=== PATIENT | male | born 1960 | race Caucasian/White ===

== ENCOUNTER → 2017-04-06 | Outpatient (CLI) | payer OTHER, SELFPAY ==
[~2017-04-06] MED LIST: CHROMIUM PICO PO; CLONAZEPAM 1 MG1 M1 PO; CLONAZEPAM PO; FLAX SEED OIL1000 MG PO; FLOMAX0.4 MG PO; GLUCOPHAGE500 MG PO; GLUCOTROL5 MG PO; IBUPROFEN 800800 M1 PO; KELP1 EACH PO; KELP150 MC1 PO; KLONOPIN0.5 MG PO; MECLIZINE HCL25 M1 PO; METAMUCIL283 GM PO; METFORMIN HCL500 MG PO; MIRALAX17 GM PO; MIRALAX255 GM PO; MULTIVITAMINS PO; OMEPRAZOLE40 MG PO; PAXIL10 MG PO; PERCOCET PO; REQUIP 0.25 M0.25 MG PO; SENNA-S TABLET1 EACH; TRAMADOL 50 MG50 MG PO; TYLENOL325 MG PO; VICODIN 5-5001 EACH; VITAMIN B-12250 MCG PO; VITAMIN B-6200 M1 PO; VITAMIN D 5050000 I1 PO; VITAMIN D PO; VITAMIN D1000 UNI1 PO
== END ==
LOC: M.ULTRA 13:00
DX: M54.16 Radiculopathy, lumbar region (principal); M51.26 Other intervertebral disc displacement, lumbar region; I73.9 Peripheral vascular disease, unspecified; E11.42 Type 2 diabetes mellitus with diabetic polyneuropathy; I10 Essential (primary) hypertension; G62.9 Polyneuropathy, unspecified; M17.0 Bilateral primary osteoarthritis of knee; M54.41 Lumbago with sciatica, right side

== ENCOUNTER 2017-04-30 12:05 | Inpatient (IN) | payer OTHER ==
[~2017-04-30] VITALS: Ht 177.8 cm; Wt 102.1 kg
[~2017-04-30 12:05] MED LIST changes: -FLOMAX0.4 MG PO; -METFORMIN HCL500 MG PO; -REQUIP 0.25 M0.25 MG PO
[2017-04-30 12:09] VITALS: BP 148/86
[2017-04-30 12:25] LABS: ABSOLUTE EOSINOPHILS 0.1 thou/uL (0.0-0.7); ABSOLUTE LYMPHOCYTES 0.8 thou/uL (0.8-5.3); ABSOLUTE MONOCYTES 0.5 thou/uL (0.0-1.2); ABSOLUTE NEUTROPHILS 5.4 thou/uL (1.6-8.1); BASOPHILS 0.4 %; EOSINOPHILS 0.9 %; HEMATOCRIT 44.1 % (42.0-52.0); HEMOGLOBIN 15.3 gm/dL (14.0-18.0); LYMPHOCYTES 12.2 %; MCH 33.6 pg (26.0-34.0); MCHC 34.8 g/dL (28.0-37.0); MCV 96.7 fL (80.0-100.0); MONOCYTES 7.4 %; MPV 9.6 fl. (7.2-11.1); NUCLEATED RBCS 0 /100WBC; PLATELET COUNT* 169 thou/uL (150-400); POLYS 79.1 %; RBC 4.56 mil/uL (4.50-6.00); RDW-CV 13.4 % (10.5-14.5); WBC 6.8 thou/uL (4.0-11.0)
[2017-04-30 12:35] LABS: ANION GAP 13 mmol/L (7-16); BUN 14 mg/dL (7-18); CHLORIDE 97 mmol/L (98-107); CO2 24 mmol/L (21-32); CREATININE 1.4 mg/dL (0.6-1.3); GLUCOSE 466 mg/dL (70-99); SODIUM 134 mmol/L (136-145)
[2017-04-30 12:42] LABS: ALBUMIN 3.5 g/dL (3.4-5.0); ALKALINE PHOSPHATASE 68 U/L (46-116); LIPASE 321 U/L (73-393); MAGNESIUM 1.6 mg/dL (1.8-2.4); SGOT 51 U/L (15-37); SGPT 72 U/L (30-65); TOTAL BILIRUBIN 0.6 mg/dL (<0.1-1.0); TOTAL PROTEIN 7.4 g/dL (6.4-8.2); TROPONIN-I LEVEL <0.06 ng/mL (<0.06)
[2017-04-30 13:52] VITALS: BP 120/80
[2017-04-30 14:00] VITALS: BP 153/82; BP 153/83
--- NOTE | 2017-04-30 15:21 | EKG ---
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 : 1960 Requested By: Charlie Gan Order Number: [id number] MD: Kris Miller Measurements Intervals [place] Rate: 107 P: 33 [place]: 144 QRS: -33 QRSD: 86 T: 30 QT: 325 QTc: 434 Interpretive Statements Sinus tachycardia Ventricular premature complex Probable left atrial enlargement Left axis deviation Compared to ECG 06/30/2013 13:42:03 Ventricular premature complex(es) now present Sinus rhythm no longer present Electronically Signed On 04-30-2017 15:21:03 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
[2017-04-30 15:39] VITALS: BP 123/68
--- NOTE | 2017-04-30 16:00 | NUR ---
VSS, ASSUMED CARE OF PT FROM ER, ASSESSMENT PERFORMED AND CHARTED, PT IS A&O4 AND ON RA AND TRACING SR ON THE MONITOR, ON RA AND STATES PAIN IN LEFT CHEST BREST. PT IS UP AD COURT AND LUNGS ARE CLEAR, SKIN INTACT, WILL FOLLOW WITH PLAN OF CARE,
[2017-04-30 20:00] VITALS: BP 112/74
[2017-05-01] VITALS: BP 132/80
[2017-05-01 04:00] VITALS: BP 148/88
--- NOTE | 2017-05-01 06:08 | NUR ---
ASSUMED PATIENT CARE AT 1900. BEDSIDE REPORT GIVEN. DENIES CHEST PAIN OR SOA. EDUCATION PROVIDED ON DM AND FOOTCARE WELL DIET. VERBALIZES HIS INSEPCTS FEET FOR HIM AND THAT HE WILL FOLLOW UP WITH RD POST DC. PATIENT BG ELEVATED. HIMS DOC PAGED FOR ORDERS FOR BG CONTROL. HOURLY ROUNDING IN PLACE. WILL CONTINUE TO MONITOR.
[2017-05-01 08:00] VITALS: BP 146/89
[2017-05-01 08:17] LABS: HEMATOCRIT 42.7 % (42.0-52.0); MCH 33.3 pg (26.0-34.0); MCHC 35.1 g/dL (28.0-37.0); MCV 94.8 fL (80.0-100.0); MPV 9.5 fl. (7.2-11.1); RBC 4.5 mil/uL (4.50-6.00); RDW-CV 13.1 % (10.5-14.5); WBC 6.1 thou/uL (4.0-11.0)
[2017-05-01 08:35] LABS: ANION GAP 8 mmol/L (7-16); BUN 13 mg/dL (7-18); CHLORIDE 103 mmol/L (98-107); CO2 29 mmol/L (21-32); CREATININE 0.9 mg/dL (0.6-1.3); GLUCOSE 185 mg/dL (70-99); MAGNESIUM 1.6 mg/dL (1.8-2.4); POTASSIUM 4.2 mmol/L (3.5-5.1); SODIUM 140 mmol/L (136-145); TROPONIN-I LEVEL <0.06 ng/mL (<0.06)
[2017-05-01 12:00] VITALS: BP 138/82
[2017-05-01] MEDS ORDERED: REQUIP 0.25 M0.25 MG PO (12:40)
[2017-05-01] MEDS ORDERED: FLOMAX0.4 MG PO (12:40)
--- NOTE | 2017-05-01 13:37 | NUR ---
ASSUMED CARE OF PATIENT THIS AM PT IS ALERT AND ORIENTED X [address] DENIES CHEST PAIN BUT DOES HAVE CHEST TIGHTNESS BS ARE STILL ELEVATED PLAN TO DC TODAY CARDIOLOGY SIGNED OFF FOLLOW UP WITH PRIMARY CARE IV AND CARDDIAC MONITOR TO BE DISCONTINUED NO CONCERNS AT THIS TIME
[2017-05-01] MEDS ORDERED: METFORMIN HCL500 MG PO (14:16)
[2017-05-01 15:50] VITALS: BP 138/82
--- NOTE | 2017-05-01 16:18 | NUR ---
PT LEFT WITH FAMILY WITHOUT ANY CONCERNS
--- NOTE | 2017-05-03 08:26 | CON ---
[address] [address] CONSULTATION Name: SHELLEY JASMINE Ramón Room: [address] IN M.R.#: [id number] Admission: 04/30/17 Attend Phys: Brisa Grey MD Discharge: 05/01/17 Date of : 58 Report #: [id number] THIS REPORT FOR: //name// CC: OLAMIDE Grey DATE OF SERVICE: 05/01/2017 HISTORY OF PRESENT ILLNESS: The patient is a 56-year-old white male who I was asked to see in the hospital today after he complained of chest pain. The patient was seen by my partner back in 06/2013. At that time, he was complaining of chest pain and shortness of breath. He underwent a heart catheterization from the right femoral artery. Results showed normal coronary arteries and normal left ventricular function. It was felt that his chest pain was noncardiac. Unfortunately, after his discharge, he developed a hematoma in the groin and a pseudoaneurysm. However, he eventually recovered. He is not very active at this time. Recently, the patient had nasal congestion and a cough. He has felt short of breath. He went to see his doctor yesterday. He has noticed some chest heaviness. It is not related to exertion or meals. It can last for hours at a time. Occasionally, he notes some left arm pain. He has been short of breath and diaphoretic. He denied any blood in the stool. He denied trauma to his chest. The pain was not related to coughing. I was asked to see him for further evaluation and treatment. PAST MEDICAL HISTORY: Significant for hemicolectomy for colon cancer, bilateral knee arthroscopy, tonsillectomy, diabetes. No history of hypertension or hyperlipidemia. MEDICATIONS: Consist of glipizide, metformin, omeprazole, oxycodone, Paxil. ALLERGIES: He has intolerance to PENICILLIN. FAMILY HISTORY: His father had a tachycardia. Grandfather had a stroke. SOCIAL HISTORY: He is . He and his live in [place], [place]. He is retired. 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 No smoking. No longer uses alcohol. REVIEW OF SYSTEMS: Denied any history of stroke. He was diagnosed with sleep apnea in the past, no longer uses CPAP. He has had a peptic ulcer in the past. He was diagnosed with hemochromatosis. No history of kidney disease, psychiatric illness or chronic skin condition. PHYSICAL EXAMINATION: GENERAL: Revealed a middle-aged male lying in bed. [place] [address] CONSULTATION Name: SHELLEY JASMINE Room: [address] IN ..#: [id number] Admission: 04/30/17 Attend Phys: Brisa Grey MD Discharge: 05/01/17 Date of : 58 Report #: [id number] VITAL SIGNS: He had blood pressure of 130/80, pulse 90. He was afebrile. HEENT: He was anicteric. Conjunctivae pink. Mucous members moist. NECK: Veins nondistended. No carotid bruits. Neck was supple. CHEST: Clear to auscultation. CARDIAC: Regular rate and rhythm, no murmur. ABDOMEN: Soft, nontender. EXTREMITIES: Had no edema. Posterior tibial pulse 2+ bilaterally. SKIN: Warm, dry. NEUROLOGIC: Nonfocal. LYMPH: No adenopathy. MUSCULOSKELETAL: No joint effusion. RADIOLOGICAL DATA: His ECG showed a sinus rhythm, occasional PVC, left axis, but there is no ST or T-wave change noted. His workup yesterday, he had a chest x-ray in the Emergency Room that showed normal heart size and clear lung gaspar. LABORATORY DATA: Sodium 140, creatinine 0.9, glucose 185, SGOT 51, SGPT 72. Troponins all 0.06. In 2014, cholesterol was 175, triglyceride 103, HDL 30, LDL 125. White blood cell count 6.1, hemoglobin 15. IMPRESSION AND RECOMMENDATIONS: 1. Chest pressure, atypical for angina. The patient has minimal risk factors for coronary artery disease. Heart catheterization 3-1/2 years ago showed no coronary artery disease. Suspect his pain is noncardiac. Recommend no further cardiac evaluation at this time. At this time, I think it is reasonable to discharge the patient. 2. Diabetes. 3. Recent upper expiratory illness with rhinorrhea and a cough. No evidence of pneumonia. 4. Previous diagnosis of hemochromatosis. 5. History of colon cancer. <ELECTRONICALLY SIGNED> By: Olamide Miller MD, [facility] 05/03/17 0826 [id number] [id number] Miller MD, FACC /nt
== END 2017-05-01 16:23 | disposition home or self-care (01) | DRG 313 ==
LOC: M.ERS 12:05 → M.2W 13:19 → M.TBA-ER 13:19 → M.2W 14:03
PROVIDERS: Emergency Medicine Emergency Medical Services; ADMIT Internal Medicine
DX: R07.89 Other chest pain (principal); J45.909 Unspecified asthma, uncomplicated; G25.81 Restless legs syndrome; E11.65 Type 2 diabetes mellitus with hyperglycemia; I10 Essential (primary) hypertension; K21.9 Gastro-esophageal reflux disease without esophagitis; M19.90 Unspecified osteoarthritis, unspecified site; Z85.038 Personal history of other malignant neoplasm of large intestine; Z92.21 Personal history of antineoplastic chemotherapy; Z92.3 Personal history of irradiation; Z79.84 Long term (current) use of oral hypoglycemic drugs; Z79.899 Other long term (current) drug therapy; Z88.0 Allergy status to penicillin; Z91.030 Bee allergy status

== ENCOUNTER → 2017-10-01 | Outpatient (CLI) | payer OTHER ==
[~2017-10-01] MED LIST changes: +FLOMAX0.4 MG PO; +METFORMIN HCL500 MG PO; +REQUIP 0.25 M0.25 MG PO
== END ==
LOC: M.LAB 10:00 → M.CT 11:00
PROVIDERS: Internal Medicine
DX: K76.0 Fatty (change of) liver, not elsewhere classified (principal); E11.9 Type 2 diabetes mellitus without complications

== ENCOUNTER → 2017-10-04 | Outpatient (CLI) | payer OTHER | LOC: M.MRI 09-22 16:11 | DX: S83.241A Other tear of medial meniscus, current injury, right knee, initial encounter (principal); M50.323 Other cervical disc degeneration at C6-C7 level; M50.223 Other cervical disc displacement at C6-C7 level; M25.461 Effusion, right knee; M48.02 Spinal stenosis, cervical region; R10.12 Left upper quadrant pain; X58.XXXA Exposure to other specified factors, initial encounter; Y93.89 Activity, other specified; Y92.89 Other specified places as the place of occurrence of the external cause; Y99.8 Other external cause status ==

== ENCOUNTER → 2018-06-03 | Outpatient (CLI) | payer OTHER ==
--- NOTE | 2018-06-03 17:21 | CARDNUC ---
[place] [address] CARDIAC NUCLEAR IMAGING REPORT Name: MITALISHELLEY Room: [facility]#: [id number] Admission: 06/03/18 Attend Phys: Kris Edge, Discharge: Date of : 58 Date of Service: 06/03/18 1720 Report #: [id number] THIS REPORT FOR: //name// APPROVED REPORT Imaging Protocol: Rest Tc-99m/Stress Tc-99m 1 day Study performed: 06/03/2018 07:45:00 Indication: Chest pain Patient Location: Out-Patient Stress Tech: Nikki Hubbard Stress Nurse: Nidhi Pereyra RN NM Tech:SEDRICK Brown Ht: 5 ft 10 in Wt: 215 lbs BSA: 2.15 m2 BMI: 30.84 Medical History Medical History: hypertension, diabetes Medications: amlodipine, metoprolol, co 10 Allergies: penicillin Cardiac Risk Factors: age, hypertension, diabetes Exercise History: Indeterminate Meds Held (24 hrs): metoprolol Resting Data Rest SPECT myocardial perfusion imaging was performed in supine position 30 minutes following the intravenous injection of 9.8 mCi of Tc-99m Sestamibi. Time of rest injection: 809 Date: 06/03/2018 The images were gated to evaluate regional wall motion and calculate left ventricular ejection fraction. Administration Route: IV Administration Site: Right AC Pharmacologic Stress Pharmacologic stress test was performed by injecting Regadenoson 0.4 mg IV push over 10-15 seconds immediately followed by the intravenous injection of 34.4 mCi of Tc-99m Sestamibi. Time of stress injection: 924 Date: 06/03/2018 Administration Route: IV Administration Site: Right AC Gated Stress SPECT was performed 40 minutes after stress injection. The images were gated to evaluate regional [place] [address] CARDIAC NUCLEAR IMAGING REPORT Name: SHELLEY JASMINE Room: [facility]#: [id number] Admission: 06/03/18 Attend Phys: Kris Edge, Discharge: Date of : 58 Date of Service: 06/03/18 1720 Report #: [id number] left ventricular ejection fraction. Prone imaging was performed. Stress Test Details Stress Test: Pharmacologic stress testing performed using 0.4 mg of regadenoson per 5 mL given IV over 10 seconds. Reason for pharmacologic stress test: physical limitation. HR Max Heart Rate (APMHR): 162 bpm Resting HR: 61 bpm Target HR (85% APMHR): 137 bpm Max HR Achieved: 97 bpm % of APMHR: 59 Recovery HR: 87 bpm HR response to stress: Normal HR response to stress BP Resting BP: 153/90 mmHg Max BP: 184/86 mmHg Recovery BP: 181/89 mmHg BP response to stress: Normal blood pressure response to stress. ECG Clinical Reason for Termination: Completed protocol Exercise duration: 0 min sec Exercise capacity: 1 METs Nurse Comments pt unable to walk treadmill dut to bad hip Study Quality Study: Good Artifact: No artifact Lung Uptake: Normal Study Data At rest, the left ventricular ejection fraction was 62%.. Post stress, the left ventricular ejection was 70%.. SSS: 0 SRS: 3 SDS: -3 TID = 1.01. Perfusion Review of rest data reveals normal perfusion, [place] [address] CARDIAC NUCLEAR IMAGING REPORT Name: SHELLEY JASMINE Room: [facility]#: [id number] Admission: 06/03/18 Attend Phys: Kris Edge, Discharge: Date of : 58 Date of Service: 06/03/18 1720 Report #: [id number] defects.Imaging obtained following vasodilator stress demonstrate a similar, uniform uptake of tracer without defects. Prone imaging was normal. LVEDV is normal.No segental wall motion abnormality seen. Images were reviewed using HitchedPic. Wall Motion normal in all segments Nuclear Conclusion Nuclear Findings: negative for ischemia Exercise Capacity: not assessed Left Ventricular Function: normal Risk Study: low Negative perfusion nuclear stress test for ischemia or infarct. <ELECTRONICALLY SIGNED> By: Abel Michaels MD, FACC 06/03/18 1720 172 19 Abel Michaels MD, FACC /INF
== END ==
LOC: M.NUC 05-13 12:32
DX: R07.9 Chest pain, unspecified (principal); E11.42 Type 2 diabetes mellitus with diabetic polyneuropathy; I10 Essential (primary) hypertension; G62.9 Polyneuropathy, unspecified; M17.0 Bilateral primary osteoarthritis of knee; Z88.0 Allergy status to penicillin; Z79.899 Other long term (current) drug therapy

== ENCOUNTER → 2018-12-27 | Outpatient (CLI) | payer OTHER | LOC: M.MRI 08:30 | DX: M50.121 Cervical disc disorder at C4-C5 level with radiculopathy (principal); M48.02 Spinal stenosis, cervical region; E11.42 Type 2 diabetes mellitus with diabetic polyneuropathy; I10 Essential (primary) hypertension; M17.0 Bilateral primary osteoarthritis of knee; G25.81 Restless legs syndrome ==

== ENCOUNTER → 2019-01-06 | Outpatient (CLI) | payer OTHER | LOC: M.CT 14:55 | DX: N20.0 Calculus of kidney (principal); K56.41 Fecal impaction ==

== ENCOUNTER → 2019-04-13 | Outpatient (CLI) | payer OTHER | LOC: M.MRI 11:30 | DX: S82.141A Displaced bicondylar fracture of right tibia, initial encounter for closed fracture (principal); S83.241A Other tear of medial meniscus, current injury, right knee, initial encounter; M65.861 Other synovitis and tenosynovitis, right lower leg; M25.461 Effusion, right knee; M48.02 Spinal stenosis, cervical region; G89.29 Other chronic pain; M85.68 Other cyst of bone, other site; M51.27 Other intervertebral disc displacement, lumbosacral region; M48.061 Spinal stenosis, lumbar region without neurogenic claudication; E11.42 Type 2 diabetes mellitus with diabetic polyneuropathy; I10 Essential (primary) hypertension; G62.9 Polyneuropathy, unspecified; M17.0 Bilateral primary osteoarthritis of knee; G25.81 Restless legs syndrome; X58.XXXA Exposure to other specified factors, initial encounter; Y93.89 Activity, other specified; Y92.89 Other specified places as the place of occurrence of the external cause; Y99.8 Other external cause status ==

== ENCOUNTER → 2019-05-11 | Outpatient (CLI) | payer OTHER | LOC: M.RAD 14:59 | DX: R05 Cough (principal); R06.02 Shortness of breath; Z88.0 Allergy status to penicillin ==

== ENCOUNTER → 2019-06-27 | Outpatient (CLI) | payer OTHER | LOC: M.CT 12:43 | DX: N20.0 Calculus of kidney (principal) ==

== ENCOUNTER → 2019-11-08 | Outpatient (CLI) | payer OTHER | LOC: M.ULTRA 13:20 | PROVIDERS: ATTEND Registered Nurse Diabetes Educator | DX: E01.0 Iodine-deficiency related diffuse (endemic) goiter (principal); E83.52 Hypercalcemia ==

== ENCOUNTER 2019-12-04 19:11 | Emergency (ER) | payer OTHER ==
[~2019-12-04] VITALS: Ht 177.8 cm; Wt 98.0 kg
[2019-12-04 19:51] LABS: ABSOLUTE LYMPHOCYTES 0.7 thou/uL (0.8-5.3); ABSOLUTE MONOCYTES 0.5 thou/uL (0.0-1.2); ABSOLUTE NEUTROPHILS 3.4 thou/uL (1.6-8.1); BASOPHILS 0.4 %; EOSINOPHILS 0.4 %; HEMATOCRIT 42.3 % (42.0-52.0); HEMOGLOBIN 14.9 gm/dL (14.0-18.0); LYMPHOCYTES 14.4 %; MCH 33.2 pg (26.0-34.0); MCHC 35.4 g/dL (28.0-37.0); MONOCYTES 10.2 %; MPV 8.4 fl. (7.2-11.1); NUCLEATED RBCS 0 /100WBC; PLATELET COUNT* 143 thou/uL (150-400); POLYS 74.6 %; RBC 4.49 mil/uL (4.50-6.00); RDW-CV 13.6 % (10.5-14.5); WBC 4.6 thou/uL (4.0-11.0)
[2019-12-04 19:59] LABS: CALCIUM 9.8 mg/dL (8.5-10.1); CREATININE 1.1 mg/dL (0.6-1.3)
[2019-12-04 20:09] LABS: ALBUMIN 3.7 g/dL (3.4-5.0); MAGNESIUM 1.7 mg/dL (1.8-2.4); TOTAL BILIRUBIN 0.5 mg/dL (<0.1-1.0); TOTAL PROTEIN 7.6 g/dL (6.4-8.2)
[2019-12-04] MEDS ORDERED: ZPAK PO (20:26)
[2019-12-04 20:43] VITALS: BP 120/70
--- NOTE | 2019-12-05 15:50 | EKG ---
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: DASH : 1960 Requested By: Charlie Gan Order Number: [id number] MD: Krystian Renee Measurements Intervals [place] Rate: 81 P: 36 [place]: 142 QRS: -24 QRSD: 80 T: 4 QT: 347 QTc: 403 Interpretive Statements Sinus rhythm Borderline left axis deviation Borderline T wave abnormalities Compared to ECG 04/30/2017 12:09:22 T-wave abnormality now present Sinus tachycardia no longer present Ventricular premature complex(es) no longer present Electronically Signed On 12-05-2019 15:50:41 CDT by Krystian Renee [email or web address] <ELECTRONICALLY SIGNED> By: Krystian Renee MD, FACC 12/05/19 1550 46 46 Krystian Renee MD, FAC /EPI
== END 2019-12-04 20:45 | disposition home or self-care (01) ==
LOC: M.ERS 19:11
PROVIDERS: Emergency Medicine Emergency Medical Services
DX: U07.1 COVID-19 (principal); R06.02 Shortness of breath; R11.0 Nausea; R07.89 Other chest pain; E78.00 Pure hypercholesterolemia, unspecified; I10 Essential (primary) hypertension; J45.909 Unspecified asthma, uncomplicated; E11.9 Type 2 diabetes mellitus without complications; K21.9 Gastro-esophageal reflux disease without esophagitis; Z79.899 Other long term (current) drug therapy; Z88.0 Allergy status to penicillin; Z91.030 Bee allergy status

== ENCOUNTER → 2019-12-26 | Outpatient (CLI) | payer OTHER ==
[~2019-12-26] MED LIST changes: +ZPAK PO
== END ==
LOC: M.RAD 12:50
PROVIDERS: ATTEND Registered Nurse Diabetes Educator
DX: R05 Cough (principal); Z86.19 Personal history of other infectious and parasitic diseases

== ENCOUNTER → 2020-02-15 | Outpatient (CLI) | payer OTHER | LOC: M.ULTRA 09:47 | PROVIDERS: ATTEND Registered Nurse Diabetes Educator | DX: N43.3 Hydrocele, unspecified (principal) ==

== ENCOUNTER 2020-06-12 21:09 | Emergency (ER) | payer OTHER ==
[~2020-06-12] VITALS: Ht 177.8 cm; Wt 55.8 kg
[2020-06-12] MEDS ORDERED: [UNRECOGNIZED DRUG - REMARK] (21:20)
[2020-06-13] MEDS ORDERED: MEDROLDOSEPACK PO (00:23)
[2020-06-13] MEDS ORDERED: FLEXERIL PO (00:23)
[2020-06-13 00:59] VITALS: BP 140/73
[2020-06-13] MEDS ORDERED: DOXYCYCLINE 10100 M2 PO (13:32)
== END 2020-06-13 01:00 | disposition home or self-care (01) ==
LOC: M.ERS 21:09
DX: M48.061 Spinal stenosis, lumbar region without neurogenic claudication (principal); G47.30 Sleep apnea, unspecified; E11.9 Type 2 diabetes mellitus without complications; J45.909 Unspecified asthma, uncomplicated; G25.81 Restless legs syndrome; K21.9 Gastro-esophageal reflux disease without esophagitis; M19.90 Unspecified osteoarthritis, unspecified site; Z85.038 Personal history of other malignant neoplasm of large intestine; Z88.0 Allergy status to penicillin; Z91.030 Bee allergy status

== ENCOUNTER 2020-06-13 11:25 | Emergency (ER) | payer OTHER ==
[~2020-06-13] VITALS: Ht 177.8 cm; Wt 101.2 kg
[~2020-06-13 11:25] MED LIST changes: +FLEXERIL PO; +MEDROLDOSEPACK PO; +[UNRECOGNIZED DRUG - REMARK]
[2020-06-13 12:17] LABS: HEMATOCRIT 46.7 % (42.0-52.0); HEMOGLOBIN 15.8 gm/dL (14.0-18.0); MCH 32.3 pg (26.0-34.0); MCHC 33.9 g/dL (28.0-37.0); MCV 95.2 fL (80.0-100.0); MPV 9.6 fl. (7.2-11.1); NUCLEATED RBCS 0 /100WBC; PLATELET COUNT* 206 thou/uL (150-400); RDW-CV 12.6 % (10.5-14.5); WBC 12.5 thou/uL (4.0-11.0)
[2020-06-13 12:21] LABS: URINE BILIRUBIN NEGATIVE (Negative); URINE BLOOD NEGATIVE (Negative); URINE CLARITY CLEAR; URINE COLOR YELLOW; URINE GLUCOSE-RANDOM 3+ (Negative); URINE KETONES 1+ (Negative); URINE LEUKOCYTES-REFLEX NEGATIVE (Negative); URINE NITRITE-REFLEX NEGATIVE (Negative); URINE PROTEIN NEGATIVE (Negative); URINE UROBILINOGEN 0.2 E.U./dl (0.2-1.0)
[2020-06-13 12:32] LABS: CALCIUM 10.1 mg/dL (8.5-10.1); CREATININE 1.2 mg/dL (0.6-1.3); POTASSIUM 4.5 mmol/L (3.5-5.1)
[2020-06-13 12:33] LABS: ALBUMIN 3.9 g/dL (3.4-5.0); TOTAL BILIRUBIN 0.6 mg/dL (<0.1-1.0); TOTAL PROTEIN 8.1 g/dL (6.4-8.2)
[2020-06-13 12:53] LABS: ABSOLUTE LYMPHOCYTES 1.3 thou/uL (0.8-5.3); ABSOLUTE MONOCYTES 0.3 thou/uL (0.0-1.2); ANISOCYTOSIS 1+; PLATELET ESTIMATE ADEQUATE; POIKILOCYTOSIS 1+
[2020-06-13 13:27] LABS: PCO2 VENOUS 37.4 mmHg (41.0-51.0)
[2020-06-13] MEDS ORDERED: DOXYCYCLINE 10100 M2 PO (13:32)
[2020-06-13 14:19] VITALS: BP 151/94
== END 2020-06-13 14:20 | disposition home or self-care (01) ==
LOC: M.ERS 11:25
PROVIDERS: Emergency Medicine Emergency Medical Services
DX: M54.10 Radiculopathy, site unspecified (principal); G47.30 Sleep apnea, unspecified; E11.9 Type 2 diabetes mellitus without complications; J45.909 Unspecified asthma, uncomplicated; G25.81 Restless legs syndrome; K21.9 Gastro-esophageal reflux disease without esophagitis; Z95.5 Presence of coronary angioplasty implant and graft; Z85.038 Personal history of other malignant neoplasm of large intestine; Z88.0 Allergy status to penicillin; Z91.030 Bee allergy status

== ENCOUNTER → 2020-06-17 | Outpatient (CLI) | payer OTHER ==
[~2020-06-17] MED LIST changes: +DOXYCYCLINE 10100 M2 PO
== END ==
LOC: M.MRI 07:45
PROVIDERS: ATTEND Registered Nurse Diabetes Educator
DX: M51.16 Intervertebral disc disorders with radiculopathy, lumbar region (principal); M51.26 Other intervertebral disc displacement, lumbar region; R20.0 Anesthesia of skin; R93.7 Abnormal findings on diagnostic imaging of other parts of musculoskeletal system; M25.78 Osteophyte, vertebrae; M48.061 Spinal stenosis, lumbar region without neurogenic claudication

== ENCOUNTER 2020-08-06 10:48 | Emergency (ER) | payer OTHER ==
[~2020-08-06] VITALS: Ht 177.8 cm; Wt 92.5 kg
[~2020-08-06 10:48] MED LIST changes: -HYDROCODON-ACE1 EAC7 PO; -LANTUS SUBQ
[2020-08-06] MEDS ORDERED: LANTUS SUBQ (11:11)
[2020-08-06] MEDS ORDERED: HYDROCODON-ACE1 EAC7 PO (12:04)
[2020-08-06 13:01] VITALS: BP 139/80
== END 2020-08-06 13:02 | disposition home or self-care (01) ==
LOC: M.ERS 10:48
DX: M54.5 Low back pain (principal); M79.662 Pain in left lower leg; Z88.0 Allergy status to penicillin; Z88.8 Allergy status to other drugs, medicaments and biological substances; J45.909 Unspecified asthma, uncomplicated; K21.9 Gastro-esophageal reflux disease without esophagitis; Z85.038 Personal history of other malignant neoplasm of large intestine; Z79.899 Other long term (current) drug therapy; Z79.4 Long term (current) use of insulin

== ENCOUNTER → 2020-08-06 | Outpatient (CLI) | payer OTHER ==
[~2020-08-06] MED LIST changes: +HYDROCODON-ACE1 EAC7 PO; +LANTUS SUBQ
== END ==
LOC: M.LAB 08-01 10:30 → M.MRI 08-01 10:30 → M.LAB 07:30 → M.MRI 08:30
PROVIDERS: ATTEND Internal Medicine Hematology & Oncology
DX: C20 Malignant neoplasm of rectum (principal); N28.1 Cyst of kidney, acquired; K76.0 Fatty (change of) liver, not elsewhere classified

== ENCOUNTER → 2020-08-14 | Outpatient (CLI) | payer OTHER ==
[~2020-08-14] MED LIST changes: +HYDROCODON-ACE1 EAC7 PO; +LANTUS SUBQ
== END ==
LOC: M.CT 07:26
PROVIDERS: ATTEND Internal Medicine
DX: C18.9 Malignant neoplasm of colon, unspecified (principal); R10.9 Unspecified abdominal pain

== ENCOUNTER → 2020-09-03 | Outpatient (CLI) | payer OTHER | LOC: M.RAD 13:26 | PROVIDERS: ATTEND Registered Nurse Diabetes Educator | DX: M51.36 Other intervertebral disc degeneration, lumbar region (principal); M16.0 Bilateral primary osteoarthritis of hip; M54.5 Low back pain; M25.552 Pain in left hip; W19.XXXD Unspecified fall, subsequent encounter; M25.752 Osteophyte, left hip; M25.751 Osteophyte, right hip ==